=== PATIENT | female | born 1970 | race Native Hawaiian/Other Pacific Islander ===

== ENCOUNTER 2020-05-27 12:20 | Emergency (ER) | payer MEDICAID, SELFPAY ==
[~2020-05-27] VITALS: Ht 165.1 cm; Wt 81.6 kg
[2020-05-27 12:54] VITALS: BP 94/39
[2020-05-27 14:03] VITALS: BP 94/39
== END 2020-05-27 14:02 | disposition home or self-care (01) ==
LOC: MED 12:20
DX: U07.1 COVID-19 (principal)
CPT/HCPCS: 99283; U0003